=== PATIENT | male | born 2000 | race Caucasian/White ===

== ENCOUNTER 2022-08-22 10:12 | Outpatient (CLI) | payer OTHER, SELFPAY | END 2022-08-22 10:13 | disposition home or self-care (01) | LOC: LKVREF 11:39 | PROVIDERS: PCP Family Medicine; Visit Provider Family Medicine | DX: E03.9 Hypothyroidism, unspecified (principal) | CPT/HCPCS: 84443 ==

== ENCOUNTER 2022-09-05 10:12 | Outpatient (CLI) | payer OTHER, SELFPAY ==
--- NOTE | 2022-09-05 10:15 | MR_ITS ---
[facility] [address] [facility] [address] Phone:?[phone] Fax:?[phone] Referring Physician Information: Tom Gamboa M.D. [id number] [address] Phone:?[phone] Fax:?[phone] Patient:Jennifer Aguero D.O.B:?2000 Sex:?Male Phone:?[phone] [facility] MRN:?[id number] Exam Date:?09/05/2022 ? EXAM: MRI OF THE RIGHT SHOULDER CLINICAL INFORMATION: The patient is a 22-year-old with right shoulder pain. Evaluate for rotator cuff tear. PRIOR SURGERY: None reported. COMPARISON STUDIES: There are no prior studies available for comparison. TECHNICAL INFORMATION: Using a 1.5T MR scanner and a localizing shoulder surface coil: 3.0 mm?coronal obliques: PD, T2, STIR 3.0 mm?sagittal obliques: PD, T2 3.0 mm?axials: PD, T2 FINDINGS: Articular/Extraarticular collections: Effusion: Mild. Subacromial/subdeltoid: Minimal fluid is seen within the subacromial/subdeltoid bursa. Subcoracoid: No evidence for bursitis. Osseous structures: Proximal humerus: No evidence for bony injury to the proximal humerus can be seen. There is no evidence for greater tuberosity fracture. No Hill-Sachs or reverse Hill-Sachs deformity is seen. Glenoid: No acute bony abnormality of the glenoid fossa or glenoid neck can be seen. Acromioclavicular joint: Mild changes of acromioclavicular joint arthrosis are present. Coracoacromial arch: Acromion morphology: Type II. Note is made of an os acromiale, seen to best advantage on axial series 3 image 6, measuring 23 mm in mediolateral dimension and 23 mm in anteroposterior dimension. Acromiohumeral space: Within normal limits. Coracohumeral space: Within normal limits. Rotator cuff and deltoid: Supraspinatus: No evidence for tendinosis, tearing, or associated muscle belly atrophy. Infraspinatus: No evidence for tendinosis, tearing, or associated muscle belly atrophy. Teres minor: No evidence for tendinosis, tearing, or associated muscle belly atrophy. Subscapularis: Mild to moderate changes of subscapularis tendinosis can be seen. There is no evidence for well-defined full or partial-thickness tearing. No atrophic changes of the subscapularis muscle belly are noted. Deltoid: No evidence for strain or tearing. Biceps tendon: The intra-articular and biceps sulcus portions of the biceps tendon are normal. There is no evidence for rupture, dislocation, or subluxation. Glenohumeral joint and labrum: Articular Cartilage: No chondral injuries along the articular surfaces of the glenohumeral articulation can be seen. No osteoarthritic changes are identified. Labrum: There are areas of poorly defined tearing and degeneration involving the superior and inferior quadrants of the posterior glenoid labrum, seen to best advantage on axial series 3 image 14 and on axial series 3 image 18. No definite evidence for well-defined tearing of the anterior labrum can be seen. Degeneration, blunting, and irregularity of the superior and inferior portions of the labrum can be seen. Evaluation of the labrum is limited due to the paucity of intra-articular fluid. If clinically warranted, MR arthrography may be helpful in further evaluation of the posterior labrum. No definite paralabral ganglion cyst formation is seen. Capsular Soft Tissues: No definite capsular abnormalities of the glenohumeral joint are seen. No evidence for capsular tearing is present and there are no MR signs of adhesive capsulitis. CONCLUSION: 1. Suspected areas of poorly defined tearing involving the posterior aspect of the glenoid labrum can be seen. MR arthrography may be helpful in further evaluation. 2. Subscapularis tendinosis. No full or partial-thickness rotator cuff tearing is seen. 3. No injuries to the acromioclavicular joint are present. 4. The long head of the biceps tendon appears intact. 5. Mild glenohumeral joint effusion. AEC Electronically signed on 09/05/2022 2:02:00 PM by Mikhail Roe M.D.
== END 2022-09-05 10:13 | disposition home or self-care (01) ==
LOC: MRI 10:13
PROVIDERS: PCP Family Medicine; Visit Provider Family Medicine
DX: M25.511 Pain in right shoulder (principal); S43.401A Unspecified sprain of right shoulder joint, initial encounter; M25.411 Effusion, right shoulder
CPT/HCPCS: 73221

== ENCOUNTER 2022-09-08 15:17 | Outpatient (RCR) | payer OTHER, SELFPAY | END 2023-06-04 23:59 | disposition home or self-care (01) | PROVIDERS: PCP Family Medicine; Visit Provider Family Medicine | DX: M25.511 Pain in right shoulder (principal); Z51.89 Encounter for other specified aftercare | CPT/HCPCS: 97161 ==

== ENCOUNTER 2023-11-26 13:44 | Outpatient (CLI) | payer OTHER, SELFPAY | END 2023-11-26 13:45 | disposition home or self-care (01) | PROVIDERS: PCP Family Medicine; Visit Provider Family Medicine | DX: Z00.00 Encounter for general adult medical examination without abnormal findings (principal); E03.9 Hypothyroidism, unspecified; Z13.6 Encounter for screening for cardiovascular disorders | CPT/HCPCS: 80053; 80061; 84443 ==

== ENCOUNTER 2025-03-10 15:38 | Outpatient (CLI) | payer OTHER, SELFPAY | END 2025-03-10 15:39 | disposition home or self-care (01) | PROVIDERS: PCP Family Medicine; Visit Provider Family Medicine | DX: E03.9 Hypothyroidism, unspecified (principal) | CPT/HCPCS: 84439; 84443 ==